=== PATIENT | male | born 1970 | race Caucasian/White ===

== ENCOUNTER 2017-07-10 11:17 | Emergency (ER) | payer OTHER ==
[~2017-07-10] VITALS: Ht 182.9 cm; Wt 97.6 kg
[~2017-07-10 11:17] MED LIST: ALTACE10 MG PO; ATIVAN0.25 MG PO; Claritin,Alavart PO; Flonase BOTH NARES; Norvasc PO; SPIRONOLACTONE25 MG PO; THERAGRAN1 TABLET PO; Vicodin,Lortab 5/500 PO; Zofran SL
[2017-07-10 14:35] VITALS: BP 145/84
== END 2017-07-10 14:48 | disposition home or self-care (01) ==
LOC: EME 11:17
DX: S00.93XA Contusion of unspecified part of head, initial encounter (principal); W18.2XXA Fall in (into) shower or empty bathtub, initial encounter; Y93.E1 Activity, personal bathing and showering; Z98.2 Presence of cerebrospinal fluid drainage device; Z98.890 Other specified postprocedural states; I10 Essential (primary) hypertension; K21.9 Gastro-esophageal reflux disease without esophagitis; F41.0 Panic disorder [episodic paroxysmal anxiety]; Z98.84 Bariatric surgery status; Z87.891 Personal history of nicotine dependence
CPT/HCPCS: 70450; 93005; 99281; 99283